=== PATIENT | male | born 1990 | race Caucasian/White ===

== ENCOUNTER → 2018-11-11 | Outpatient (CLI) | payer OTHER ==
[~2018-11-11] MED LIST: AMPDEX10; ARIP15; ARIP30; AZIT250 PO; CEFD300 PO; CEPH500; CEPH500 PO; CLIN300 PO; CLON.1; CLON.1TP; CRUTCH4 USE; CYCL10 PO; HYDACE25S PR; HYDACE5 PO; HYDGUAL120 PO; HYDHOMSY PO; IBUP600 PO; IBUP800; IBUP800 PO; KENALOG; LOPE2C PO; METPHE10; METPHE20 PO; NAPR500 PO; NAPR550 PO; OXYACE5T PO; PROACE100; PROM25 PO; RXHYDGUAS PO; RXNAPNA550 PO; RXPROCODSY PO; SULTRIDS PO; TOPI25 PO; TRAM50 PO; TRAZ50 PO; Ultram50 MG PO; [UNRECOGNIZED DRUG - OTHER]
[2018-11-13 02:08] LABS: CHLAMYDIA TRACHOMATIS, NAA Negative (Negative); NEISSERIA GONORRHOEAE, NAA Negative (Negative)
== END | disposition home or self-care (01) ==
LOC: LAB EV 18:11 → LAB SHORT 18:11
PROVIDERS: Physician Assistant Medical
DX: N50.812 Left testicular pain (principal)
CPT/HCPCS: 87491; 87591

== ENCOUNTER 2020-03-13 15:26 | Emergency (ER) | payer OTHER ==
[~2020-03-13] VITALS: Ht 190.5 cm; Wt 133.8 kg
[2020-03-13] MEDS ORDERED: IBUP800 PO (16:00)
[2020-03-13] MEDS ORDERED: Robaxin-750750 MG PO (16:00)
== END 2020-03-13 16:13 | disposition home or self-care (01) ==
LOC: ER 15:26
DX: S13.4XXA Sprain of ligaments of cervical spine, initial encounter (principal); M62.830 Muscle spasm of back; M25.512 Pain in left shoulder; F17.200 Nicotine dependence, unspecified, uncomplicated; Z88.0 Allergy status to penicillin; Z88.8 Allergy status to other drugs, medicaments and biological substances; V49.40XA Driver injured in collision with unspecified motor vehicles in traffic accident, initial encounter; Y92.410 Unspecified street and highway as the place of occurrence of the external cause
CPT/HCPCS: 99283

== ENCOUNTER 2021-01-16 18:55 | Emergency (ER) | payer OTHER ==
[~2021-01-16] VITALS: Ht 190.5 cm; Wt 180.5 kg
[~2021-01-16 18:55] MED LIST changes: +Robaxin-750750 MG PO
[2021-01-16 20:06] LABS: BASOPHILS ABSOLUTE AUTO 0.02 K/mm3 (0.00-0.23); BASOPHILS PERCENT AUTO 0 % (0-2); EOSINOPHILS ABSOLUTE AUTO 0.39 K/mm3 (0.00-0.68); EOSINOPHILS PERCENT AUTO 5 % (0-6); Hematocrit 43.9 % (37.0-53.0); IMMATURE GRAN ABSOLUTE AUTO 0.07 K/mm3 (0.00-0.10); IMMATURE GRAN PERCENT AUTO 1 % (0-1); LYMPHOCYTES ABSOLUTE AUTO 2.55 K/mm3 (0.84-5.20); LYMPHOCYTES PERCENT AUTO 29 % (21-46); MONOCYTES PERCENT AUTO 13 % (4-13); Mean Corpuscular HGB 28.2 pg (26.0-34.0); Mean Corpuscular HGB Conc 34.2 g/dL (31.5-36.5); Mean Corpuscular Volume 83 fL (80-100); Mean Platelet Volume 9.8 fL (9.1-12.4); NEUTROPHILS PERCENT AUTO 53 % (41-73); Platelet Count 271 K/mm3 (150-400); RDW Coefficient Variation 12.5 % (11.7-14.2); Red Blood Cell Count 5.31 M/mm3 (4.30-5.90); White Blood Cell Count 8.73 K/mm3 (4.00-11.30)
[2021-01-16 20:21] LABS: Alanine Aminotransfer (ALT/SGP 47 U/L (12-78); Albumin, Blood 3.6 g/dL (3.4-5.0); Albumin/Globulin Ratio 0.9 (0.8-1.8); Alk Phos 84 U/L (50-136); Anion Gap 4 mmol/L (6-16); Aspartate Aminotrans (AST/SGOT 29 U/L (12-37); Bilirubin, Total 0.4 mg/dL (0.1-1.0); Blood Urea Nitrogen 13 mg/dL (8-24); Bun/Creatinine Ratio 13.7 (12.0-20.0); CO2, Blood 28 mmol/L (21-32); Chloride, Blood 109 mmol/L (98-108); Creatinine, Blood 0.95 mg/dL (0.60-1.20); Globulin, Blood 3.9 g/dL (2.2-4.0); Glomerular Filtration Rate >60 (60-); Glucose, Blood 97 mg/dL (70-99); Potassium, Blood 3.7 mmol/L (3.5-5.5); Sodium, Blood 141 mmol/L (136-145); Total Protein, Blood 7.5 g/dL (6.4-8.2)
== END 2021-01-16 20:45 | disposition left against medical advice (07) ==
LOC: ER 18:55
PROVIDERS: Physician Assistant
DX: R11.0 Nausea (principal); R10.9 Unspecified abdominal pain; R19.7 Diarrhea, unspecified
CPT/HCPCS: 80053; 85025; 99283

== ENCOUNTER 2021-11-19 22:05 | Emergency (ER) | payer OTHER ==
[~2021-11-19] VITALS: Ht 190.5 cm; Wt 181.4 kg
== END 2021-11-20 01:09 | disposition home or self-care (01) ==
LOC: ER 22:05
DX: M79.671 Pain in right foot (principal); Z88.0 Allergy status to penicillin; Z88.8 Allergy status to other drugs, medicaments and biological substances; F17.200 Nicotine dependence, unspecified, uncomplicated
CPT/HCPCS: 73610; 73630; 73700

== ENCOUNTER 2022-06-29 13:02 | Emergency (ER) | payer OTHER ==
[~2022-06-29] VITALS: Ht 190.5 cm; Wt 201.8 kg
[~2022-06-29 13:02] MED LIST changes: +Cipro500 MG PO; +Flagyl500 MG PO; +HYDR1TAB94 PO
== END 2022-06-29 14:55 | disposition home or self-care (01) ==
LOC: ER 13:02
DX: Z48.01 Encounter for change or removal of surgical wound dressing (principal); F17.210 Nicotine dependence, cigarettes, uncomplicated
CPT/HCPCS: 99282

== ENCOUNTER → 2023-10-01 | Outpatient (CLI) | payer OTHER ==
[~2023-10-01] MED LIST changes: +AMLODIPINE BESY10 MG PO; +Adipex-P37.5 M1 PO; +MONDOXYNE NL100 MG PO
== END ==
LOC: LAB SHORT 17:00 → LAB 17:00
DX: R05.9 Cough, unspecified (principal); J02.9 Acute pharyngitis, unspecified
CPT/HCPCS: 87081